=== PATIENT | female | born 1965 | race Asian ===

== ENCOUNTER 2023-06-19 02:41 | Emergency (ER) | payer OTHER, SELFPAY ==
[2023-06-19 02:52] VITALS: BP 142/86; PULSE 84; RESP 16; TEMP 36.8; O2SAT 100; BMI 18.0
--- NOTE | 2023-06-19 02:53 | ED.UPPEXIN ---
HPI - Extremity Injury (Upper) General Chief Complaint: Extremity Injury, Upper Stated Complaint: possible broken bone rt wrist/thumb Time Seen by Provider: 06/19/23 02:43 History of Present Illness HPI narrative: 57-year-old female presents for evaluation of right wrist pain. She states that she had a musculoskeletal injury 2 months ago while ?wrestling? with someone. Two weeks ago she had a trip and fall and injured her right wrist further. She has been wearing a band around her fingers because any movement of her right thumb causes pain in her R wrist. Patient is afraid that her bones may be missed aligned so she decided to present today for evaluation. Denies numbness or weakness of her hand Related Data Home Medications Medication Instructions Recorded Confirmed [PATANOL] ##0 03/10/06 Allergies Allergy/AdvReac Type Severity Reaction Status Date / Time amoxicillin [AMOXICILLIN] Allergy Unknown Unverified 06/14/17 12:06 Penicillins [PENICILLINS] Allergy Unknown Unverified 06/14/17 12:06 Review of Systems Review of Systems Narrative: See HPI Patient History Social History Smoking Status: Never smoker Exam Initial Vital Signs Initial Vital Signs: Vital Signs Temperature 98.2 F 06/19/23 02:52 Pulse Rate 84 06/19/23 02:52 Respiratory Rate 16 06/19/23 02:52 Blood Pressure 142/86 H 06/19/23 02:52 Pulse Oximetry 100 06/19/23 02:52 Oxygen Delivery Method Room Air 06/19/23 02:52 Const: Awake, alert, no acute distress, nontoxic appearing MSK: Atraumatic, full range of motion, pulses equal, tenderness along radial wrist without deformity Skin: Warm, Dry, intact, no rashes Neuro: AO x3, CN II-XII grossly intact, moves all extremities Course Orders Ordered: ED Orders 06/19/23 03:02 XR wrist RT min 3V Stat Vital Signs Vital signs: Vital Signs - 8 hr 06/19/23 02:52 06/19/23 04:50 Temperature 98.2 F Pulse Rate 84 65 Respiratory Rate 16 16 Blood Pressure 142/86 H 126/75 Pulse Oximetry 100 98 Oxygen Delivery Method Room Air Room Air MDM - Extremity Injury (Upper) MDM Narrative Medical decision making narrative: Several weeks wrist pain. No obvious deformity, neurovascularly intact. X-ray showed no acute bony abnormality. Patient placed in wrist splint for comfort and advised to take Tylenol and ibuprofen as needed for pain and to apply ice for swelling. Likely tendon sprain. Discharge Plan Departure Patient Disposition: Home Clinical Impression: Sprain and strain of wrist Instructions: DI for Wrist Sprain Activity Restrictions/Additional Instructions: Your x-rays did not show any fracture or misalignment of your bones. Wear the wrist splint for comfort. Please follow up with Orthopedic surgery Prescriptions: No Action [PATANOL] Qty: 0 Referrals: Gabi Bourne MD [Primary Care Provider] - Juan Diego Davenport MD [Physician] - Stand Alone Forms: Patient Portal/API
--- NOTE | 2023-06-19 03:02 | DI.RAD.S_ITS ---
PROCEDURE: XR WRIST RT MIN 3V INDICATIONS: R WRIST PAIN I THINK MY BONES ARE MISALIGNED TECHNIQUE: 4 views of the wrist were acquired. COMPARISON: None. FINDINGS: Bones: No acute fractures or dislocations. Old injury involving tip of ulnar styloid is seen with well corticated bony fragment. 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 No suspicious bony lesions. Soft tissues: No suspicious soft tissue calcifications. IMPRESSION: No acute right wrist fracture or dislocation. Old injury involving ulnar styloid tip. Partial capitatohamate coalition. No discrepancies from preliminary reading. Dictated by: Zeferino Avila M.D. on 06/19/2023 at 8:16 Approved by: Zeferino Avila M.D. on 06/19/2023 at 8:18
[2023-06-19 04:50] VITALS: BP 126/75; PULSE 65; RESP 16; O2SAT 98
== END 2023-06-19 04:51 | disposition home or self-care (01) ==
PROVIDERS: Emergency Provider Emergency Medicine; Family Provider Family Medicine; PCP Family Medicine
DX: S63.501A Unspecified sprain of right wrist, initial encounter (principal); S66.911A Strain of unspecified muscle, fascia and tendon at wrist and hand level, right hand, initial encounter; X58.XXXA Exposure to other specified factors, initial encounter
CPT/HCPCS: 73110; 99282; 99283